=== PATIENT | female | born 1975 | race Caucasian/White ===

== ENCOUNTER 2023-06-19 08:55 | Day surgery (SDC) | payer MEDICAID ==
[~2023-06-19] VITALS: Ht 162.6 cm; Wt 95.3 kg
[2023-06-19 09:08] LABS: HCG,QUAL RESULT NEGATIVE (NEGATIVE)
[2023-06-19 09:20] VITALS: O2SAT 95
[2023-06-19] MEDS ORDERED: BENZOCAINE 20% 0.5mL UD SPRAY MM ONE (09:21)
[2023-06-19] MEDS ORDERED: MIDAZOLAM HCL 5 MG/5 ML VIAL ONE (09:22)
[2023-06-19] MEDS ORDERED: MEPERIDINE 100 MG INJ. 100 MG/ML VIAL ONE (09:22)
[2023-06-19] MEDS ORDERED: ONDANSETRON HCL 4 MG/2 ML VIAL ONE (09:43)
[2023-06-19 16:12] VITALS: BP_SYST 148; PULSE 63; RESP 18
== END 2023-06-19 10:50 | disposition home or self-care (01) ==
LOC: SDS 08:55 → SMU 08:56 → SDS 10:50
PROVIDERS: ATTEND Internal Medicine
DX: R13.10 Dysphagia, unspecified (principal); K29.50 Unspecified chronic gastritis without bleeding; K22.2 Esophageal obstruction; I10 Essential (primary) hypertension; Z85.850 Personal history of malignant neoplasm of thyroid; Z79.899 Other long term (current) drug therapy
CPT/HCPCS: 43249; 43239; 99152; 84703; 88305; 88312; 88313; G0378; J2250; J2405; J2175